=== PATIENT | female | born 1970 | race African-American/Black ===

== ENCOUNTER 2018-05-11 21:09 | Inpatient (IN) | payer SELFPAY ==
[~2018-05-11] VITALS: Ht 152.4 cm; Wt 61.2 kg
[2018-05-11] MEDS ORDERED: NITROGLYCERIN 0.4MG TABLET SL SL PRN (22:45)
[2018-05-11] MEDS ORDERED: ASPIRIN 81MG TABLET PO ONE (22:45)
[2018-05-11 23:26] LABS: BASOPHILS % 0.4 % (0.0-2.0); CHLORIDE 106 mEq/L (98-107); EOSINOPHILS % 0.8 % (0.0-5.0); HEMATOCRIT. 38.2 % (36.0-48.0); HEMOGLOBIN. 12.7 g/dL (12.0-16.0); LYMPHOCYTES % 31.5 % (20.0-50.0); MEAN CORPUSCULAR HEMOGLOBIN 30.9 pg (28.0-32.0); MONOCYTES % 6.7 % (2.0-8.0); NEUTROPHILS % 60.6 % (40.0-76.0); PLATELET 337 x1000/uL (130-400); RED CELL DISTRIBUTION WIDTH 14.8 % (11.6-14.6)
[2018-05-11 23:29] LABS: PARTIAL THROMBOPLASTIN TIME 27.9 sec (23.4-31.0); PROTHROMBIN TIME 10.2 sec (9.1-11.1)
[2018-05-11 23:46] LABS: CLARITY URINE CLEAR (CLEAR); COLOR URINE YELLOW (YELLOW); KETONES URINE NEGATIVE (NEGATIVE); LEUKOCYTE ESTERASE URINE NEGATIVE (NEGATIVE); NITRITE URINE NEGATIVE (NEGATIVE); OCCULT BLOOD URINE NEGATIVE (NEGATIVE); PROTEIN URINE NEGATIVE (NEGATIVE); SPECIFIC GRAVITY URINE 1.015 (1.005-1.030); UROBILINOGEN URINE 0.2 E.U./dL (0.2-1.0)
[2018-05-12] MEDS ORDERED: POTASSIUM CHLORIDE 20MEQ TABLET SR PO SCH (00:37)
[2018-05-12] MEDS ORDERED: KETOROLAC 30MG/ML VIAL IV ONE (00:45)
[2018-05-12] MEDS ORDERED: ENOXAPARIN 60MG/0.6ML SYR SUBCUT SCH (03:00)
[2018-05-12 05:28] VITALS: BP 135/75
[2018-05-12] MEDS ORDERED: ONDANSETRON HCL 4MG/2ML VIAL IV PRN (06:15)
[2018-05-12] MEDS ORDERED: CLON0.1T PO (06:20)
[2018-05-12] MEDS ORDERED: LOSA25TA12 PO (06:20)
[2018-05-12] MEDS ORDERED: HYDR25TA PO (06:20)
[2018-05-12] MEDS: NITROGLYCERIN OINT 1GM/INCH UDPKT TD SCH ×3 (06:30→21:16)
[2018-05-12] MEDS: DOCUSATE SODIUM 250MG CAPSULE PO PRN ×2 (06:33→15:18)
[2018-05-12] MEDS: MORPHINE SULFATE 4 MG/ML CPJ (NOT FOR IM USE) IV PRN ×4 (06:34→20:10)
[2018-05-12] MEDS: ASPIRIN 325MG EC TABLET PO SCH (07:49)
[2018-05-12] MEDS: METOPROLOL TARTRATE 50MG TABLET PO SCH ×2 (07:49→20:09)
[2018-05-12 07:53] VITALS: BP 147/90
[2018-05-12 08:00] VITALS: BP 147/90
[2018-05-12 09:32] LABS: HEMATOCRIT 35.8 % (36.0-48.0); MEAN CORPUSCULAR HEMOGLOBIN 31.1 pg (28.0-32.0); MEAN CORPUSCULAR VOLUME 92.7 fL (81.0-99.0); PLATELET 306 x1000/uL (130-400); RED BLOOD CELL COUNT 3.86 mill/uL (4.2-5.4); RED CELL DISTRIBUTION WIDTH 14.7 % (11.6-14.6)
[2018-05-12 09:44] LABS: CHLORIDE 105 mEq/L (98-107)
[2018-05-12 09:51] LABS: LDL CHOLESTEROL 108 mg/dL (5-100)
[2018-05-12 09:52] LABS: HDL CHOLESTEROL 47 mg/dL (40-59)
[2018-05-12] MEDS: ONDANSETRON 4MG ODT PO PRN ×3 (10:50→20:09)
[2018-05-12 12:26] VITALS: BP 133/65
[2018-05-12 16:00] VITALS: BP 110/50
[2018-05-12 20:00] VITALS: BP 140/66
[2018-05-12] MEDS ORDERED: ATORVASTATIN CALCIUM 10MG TABLET PO SCH (21:00)
[2018-05-13] VITALS: BP 134/64
[2018-05-13] MEDS: ONDANSETRON 4MG ODT PO PRN ×2 (01:58→09:52)
[2018-05-13] MEDS: MORPHINE SULFATE 4 MG/ML CPJ (NOT FOR IM USE) IV PRN ×3 (01:59→09:52)
[2018-05-13 04:00] VITALS: BP 144/87
[2018-05-13] MEDS: NITROGLYCERIN OINT 1GM/INCH UDPKT TD SCH (06:00)
[2018-05-13] MEDS: ASPIRIN 325MG EC TABLET PO SCH (07:42)
[2018-05-13] MEDS: METOPROLOL TARTRATE 50MG TABLET PO SCH (07:43)
[2018-05-13 08:00] VITALS: BP 141/92
[2018-05-13] MEDS ORDERED: ENOXAPARIN 40MG/0.4ML SYR SUBCUT SCH (09:00)
[2018-05-13] MEDS ORDERED: ATOR10TA PO (10:32)
[2018-05-13 12:00] VITALS: BP 133/84
[2018-05-13 14:23] VITALS: BP 133/84
== END 2018-05-13 14:55 | disposition home or self-care (01) | DRG 48 ==
LOC: ER 21:45 → EDBEDREQTM 05-12 01:14 → 6WST 05-12 01:14 → EDBEDREQ 05-12 01:14 → ENRESERV 05-12 02:07
PROVIDERS: ADMIT Internal Medicine; ATTEND Internal Medicine
DX: G90.8 Other disorders of autonomic nervous system (principal); I24.9 Acute ischemic heart disease, unspecified; E78.5 Hyperlipidemia, unspecified; E87.6 Hypokalemia; I10 Essential (primary) hypertension; I25.10 Atherosclerotic heart disease of native coronary artery without angina pectoris; I25.2 Old myocardial infarction; Z82.49 Family history of ischemic heart disease and other diseases of the circulatory system; Z90.49 Acquired absence of other specified parts of digestive tract; Z90.710 Acquired absence of both cervix and uterus; Z88.0 Allergy status to penicillin; Z79.899 Other long term (current) drug therapy
CPT/HCPCS: 36415; 70551; 71045; 80048; 80053; 80061; 81003; 81025; 83880; 84443; 84484; 85025; 85027; 85610; 85730; 93005; 93306; 93880; 96374; 97116; 97162; 97530; 99285; J1650; J1885; J2270; Q0162